=== PATIENT | male | born 1970 | race Caucasian/White ===

== ENCOUNTER 2019-04-07 13:24 | Emergency (ER) | payer BC ==
[2019-04-07] MEDS ORDERED: Lidocaine 1% (PF) 30 ML VIAL ONE (13:50)
[2019-04-07] MEDS ORDERED: Adacel (T-DAP) 0.5 ML SYRINGE ONE (13:50)
== END 2019-04-07 14:20 | disposition home or self-care (01) ==
LOC: NAV ERS 13:24
DX: S61.011A Laceration without foreign body of right thumb without damage to nail, initial encounter (principal); I10 Essential (primary) hypertension; Z23 Encounter for immunization; Z79.899 Other long term (current) drug therapy; W26.8XXA Contact with other sharp object(s), not elsewhere classified, initial encounter
CPT/HCPCS: 12001; 90471; 90715; J2001

== ENCOUNTER 2019-04-12 17:03 | Emergency (ER) | payer BC ==
[2019-04-12] MEDS ORDERED: Bacitracin 1 PK ONE (17:20)
== END 2019-04-12 17:32 | disposition home or self-care (01) ==
LOC: NAV ERS 17:03
DX: S61.011D Laceration without foreign body of right thumb without damage to nail, subsequent encounter (principal); I10 Essential (primary) hypertension; Z79.899 Other long term (current) drug therapy; X58.XXXD Exposure to other specified factors, subsequent encounter

== ENCOUNTER 2020-05-22 08:48 | Outpatient (CLI) | payer BC | END 2020-05-22 08:49 | disposition home or self-care (01) | LOC: NAV CT 08:48 | PROVIDERS: ATTEND Internal Medicine | DX: R31.29 Other microscopic hematuria (principal); K57.30 Diverticulosis of large intestine without perforation or abscess without bleeding | CPT/HCPCS: 74176 ==